=== PATIENT | male | born 1960 | race Caucasian/White ===

== ENCOUNTER 2022-07-24 11:41 | Emergency (ER) | payer OTHER ==
[~2022-07-24] VITALS: Ht 177.8 cm; Wt 81.6 kg
[2022-07-24] MEDS ORDERED: ACETAMINOPHEN 325 MG TABLET PO ONE (12:30)
[2022-07-24] MEDS ORDERED: ACETAMINOPHEN 325 MG TABLET ONE (12:44)
--- NOTE | 2022-07-24 13:25 | NUR ---
Patient discharged to home in stable condition. Written and verbal after care instructions given. Patient verbalizes understanding of instructions. Stressed follow up or return to ER for worsening s/s.
[2022-07-24 13:26] VITALS: BP 164/100
== END 2022-07-24 13:26 | disposition home or self-care (01) ==
LOC: ER 11:41
DX: Z04.1 Encounter for examination and observation following transport accident (principal); R51.9 Headache, unspecified; M54.2 Cervicalgia
CPT/HCPCS: 70450; 72125; A4663

== ENCOUNTER 2025-03-31 20:20 | Emergency (ER) | payer MEDICARE, OTHER ==
[~2025-03-31] VITALS: Ht 177.8 cm; Wt 116.6 kg
[2025-03-31] MEDS: IV NORMAL SALINE 1000 ML BAG IV ONE (21:30)
[2025-03-31] MEDS ORDERED: KETOROLAC TROMETHAMINE 15 MG INJ ONE (21:45)
[2025-03-31] MEDS ORDERED: ONDANSETRON 4 MG/2 ML VIAL ONE (21:45)
[2025-03-31] MEDS ORDERED: hydrALAZINE HCL 20 MG/1 ML VIAL ONE (21:45)
[2025-03-31 21:46] LABS: *BILIRUBIN,URIN NEGATIVE (NEGATIVE); *BLOOD, URINE 3+ (NEGATIVE); *CLARITY,URINE CLEAR (CLEAR); *COLOR,URINE YELLOW (YELLOW); *KETONES,URINE NEGATIVE (NEGATIVE); *PROTEIN,URINE 2+ (NEGATIVE); *UROBILINOGEN,URINE 0.2 E.U./dl (NORMAL); LEUKOCYTE ESTERASE ,URINE NEGATIVE (NEGATIVE); NITRITE, URINE NEGATIVE (NEGATIVE); PH,URINE 5.5 (5.0-8.0); UGLUCOSE NEGATIVE (NEGATIVE)
[2025-03-31] MEDS ORDERED: HYDROMORPHONE 1 MG/1 ML DISP.SYRIN ONE (21:46)
[2025-03-31 21:51] LABS: CALCIUM 9.8 mg/dL (8.5-10.1); CREATININE 1.9 mg/dL (0.6-1.3); POTASSIUM 4.1 mmol/L (3.5-5.1)
[2025-03-31 21:52] LABS: BASOPHILS # (AUTO) 0.1 K/UL (0.0-0.2); BASOPHILS % (AUTO) 0.5 % (0.0-2.0); EOSINOPHILS % (AUTO) 0.1 % (0.0-7.0); HEMATOCRIT 48.4 % (36.7-47.1); HEMOGLOBIN 16.3 g/dL (12.5-16.3); LYMPHOCYTES # (AUTO) 1.3 K/uL (0.8-4.8); LYMPHOCYTES % (AUTO) 6.8 % (20.5-51.5); MEAN CORPUSCULAR HEMOGLOBIN 29.6 uug (23.8-33.4); MEAN CORPUSCULAR HGB CONC 34 g/dL (32.5-36.3); MEAN CORPUSCULAR VOLUME 87.8 fL (73.0-96.2); MONOCYTES # (AUTO) 1.7 K/uL (0.1-1.30); MONOCYTES % (AUTO) 8.4 % (0.0-11.0); NEUTROPHILS # (AUTO) 16.7 K/uL (1.8-8.9); NEUTROPHILS % (AUTO) 84.2 % (38.5-71.5); PLATELET COUNT (AUTO) 238 K/uL (152-348); RED BLOOD CELL COUNT(AUTO) 5.51 MIL/uL (4.06-5.63); RED CELL DISTRIBUTION WIDTH 13.4 % (12.1-16.2); WHITE BLOOD COUNT (AUTO) 19.8 K/uL (3.6-10.2)
[2025-03-31 21:53] LABS: DIFFERENTIAL COMMENT 1
[2025-03-31 21:56] LABS: RBC,URINE 20-50 /HPF (0-3)
[2025-03-31 21:57] LABS: ALBUMIN 3.4 g/dL (3.4-5.0); BACTERIA,URINE FEW /HPF (NONE SEEN); BILIRUBIN,DIRECT 0.3 mg/dL (0.0-0.2); BILIRUBIN,TOTAL 1.2 mg/dL (0.2-1.0); SQUAMOUS EPITHELIAL CELL,UR FEW /HPF (NONE SEEN); TOTAL PROTEIN, SERUM 7.9 g/dL (6.4-8.2); WBC,URINE 0-3 /HPF (0-3)
[2025-03-31 22:03] LABS: YEAST,URINE FEW /HPF (NONE SEEN)
[2025-03-31] MEDS: hydrALAZINE HCL 20 MG/1 ML VIAL IV ONE (22:21)
[2025-03-31] MEDS: ONDANSETRON 4 MG/2 ML VIAL IV ONE (22:23)
[2025-03-31] MEDS: KETOROLAC TROMETHAMINE 15 MG INJ IVP ONE (22:24)
[2025-03-31] MEDS: HYDROMORPHONE 1 MG/1 ML DISP.SYRIN IV ONE (22:25)
[2025-03-31] MEDS ORDERED: diphenhydrAMINE 50 MG/1 ML VIAL ONE (22:28)
[2025-03-31] MEDS: diphenhydrAMINE 50 MG/1 ML VIAL IV ONE (22:34)
[2025-03-31] MEDS ORDERED: IV NORMAL SALINE 250 ML IV ONE (22:40)
[2025-03-31] MEDS ORDERED: SWABABLE VALVE TRANSFER SET EA MC ONE (22:40)
[2025-03-31] MEDS ORDERED: IOHEXOL 300MG/ML 100 ML INFUS..BTL ONE (22:40)
[2025-04-01] MEDS ORDERED: ONDA4TAB11 PO (02:14)
[2025-04-01] MEDS ORDERED: HYDR-3980 PO (02:14)
[2025-04-01] MEDS ORDERED: MAGN400O6 PO (02:14)
[2025-04-01 02:36] VITALS: BP 150/94; TEMP 98; O2SAT 95
== END 2025-04-01 02:38 | disposition home or self-care (01) ==
LOC: ER 20:20
DX: N13.2 Hydronephrosis with renal and ureteral calculous obstruction (principal); K80.20 Calculus of gallbladder without cholecystitis without obstruction; F17.210 Nicotine dependence, cigarettes, uncomplicated; I10 Essential (primary) hypertension; Z86.79 Personal history of other diseases of the circulatory system
CPT/HCPCS: 99285; 74177; 96374; 96375; 96361; 80076; 80048; 81001; 83690; 85025; 87086; 36415; 76705; J1885; J1200; J0360; J2405; Q9967; J1171; A4606; A4663